=== PATIENT | female | born 1990 | race Asian ===

== ENCOUNTER 2016-09-30 05:32 | Emergency (ER) | payer OTHER ==
[~2016-09-30] VITALS: Ht 157.5 cm; Wt 106.6 kg
[2016-09-30 06:11] VITALS: BP 153/103; TEMP 97.9
== END 2016-09-30 06:11 | disposition home or self-care (01) ==
LOC: ED 05:32
DX: K02.9 Dental caries, unspecified (principal); K04.7 Periapical abscess without sinus; K08.89 Other specified disorders of teeth and supporting structures
CPT/HCPCS: 99281

== ENCOUNTER 2017-08-13 09:33 | Emergency (ER) | payer OTHER ==
[~2017-08-13] VITALS: Ht 162.6 cm; Wt 108.4 kg
[2017-08-13 11:27] VITALS: BP 125/78; TEMP 97.2
== END 2017-08-13 11:30 | disposition home or self-care (01) ==
LOC: ED 09:33
DX: S43.401A Unspecified sprain of right shoulder joint, initial encounter (principal); X50.9XXA Other and unspecified overexertion or strenuous movements or postures, initial encounter; Y92.512 Supermarket, store or market as the place of occurrence of the external cause
CPT/HCPCS: 96372; 99282; J1885

== ENCOUNTER 2017-08-28 08:22 | Observation (INO) | payer OTHER ==
[2017-08-28] VITALS (8 sets, daily range): BP systolic 108–146; BP diastolic 71–91; TEMP 97.7–98.9; Ht 162.6 cm; Wt 109.1 kg
[~2017-08-28] VITALS: Ht 162.6 cm; Wt 109.1 kg
[2017-08-28 09:43] LABS: PLATELET COUNT 436 K/uL (152-353)
[2017-08-28 09:56] LABS: POTASSIUM 4.1 mmol/L (3.6-5.2)
[2017-08-29] VITALS: BP 102/62; TEMP 98.2
[2017-08-29 04:00] VITALS: BP 105/59; TEMP 98.6
[2017-08-29 05:39] LABS: PLATELET COUNT 382 K/uL (152-353)
[2017-08-29 05:50] LABS: POTASSIUM 3.8 mmol/L (3.6-5.2)
[2017-08-29 08:00] VITALS: BP 109/57; TEMP 98.8
[2017-08-29 12:00] VITALS: BP 112/58; TEMP 98.6
== END 2017-08-29 17:30 | disposition home or self-care (01) ==
LOC: ED 08:22 → MED/SURG 12:24
PROVIDERS: ADMIT Family Medicine
DX: N76.4 Abscess of vulva (principal); E66.01 Morbid (severe) obesity due to excess calories
CPT/HCPCS: 36415; 80048; 80053; 80202; 81025; 85027; 87070; 87205; 93005; 96367; 96374; 96375; 99220; 99284; G0378; J1885; J2543; J3370; J3490

== ENCOUNTER 2017-12-13 11:54 | Emergency (ER) | payer OTHER ==
[~2017-12-13] VITALS: Ht 162.6 cm; Wt 108.9 kg
[2017-12-13 12:00] VITALS: TEMP 97.9
[2017-12-13 12:51] VITALS: BP 140/96
== END 2017-12-13 12:51 | disposition home or self-care (01) ==
LOC: ED 11:54
DX: K08.89 Other specified disorders of teeth and supporting structures (principal); S02.5XXA Fracture of tooth (traumatic), initial encounter for closed fracture
CPT/HCPCS: 99281

== ENCOUNTER 2018-01-15 08:43 | Emergency (ER) | payer OTHER ==
[~2018-01-15] VITALS: Ht 162.6 cm; Wt 108.9 kg
[2018-01-15 08:50] VITALS: TEMP 98.4
[2018-01-15 09:20] VITALS: BP 144/68
== END 2018-01-15 09:20 | disposition home or self-care (01) ==
LOC: ED 08:43
DX: H10.9 Unspecified conjunctivitis (principal)
CPT/HCPCS: 99281

== ENCOUNTER 2018-05-01 08:46 | Emergency (ER) | payer OTHER ==
[~2018-05-01] VITALS: Ht 162.6 cm; Wt 108.9 kg
[2018-05-01 08:55] VITALS: TEMP 98.1
[2018-05-01] MEDS ORDERED: METF500T PO (08:58)
[2018-05-01 10:17] VITALS: BP 133/89
== END 2018-05-01 10:17 | disposition home or self-care (01) ==
LOC: ED 08:46
DX: J06.9 Acute upper respiratory infection, unspecified (principal); R09.81 Nasal congestion; J02.9 Acute pharyngitis, unspecified
CPT/HCPCS: 87651; 99283

== ENCOUNTER 2018-07-03 08:21 | Emergency (ER) | payer OTHER ==
[~2018-07-03] VITALS: Ht 162.6 cm; Wt 108.9 kg
[~2018-07-03 08:21] MED LIST: METF500T PO
[2018-07-03 08:23] VITALS: TEMP 98.8
[2018-07-03 09:00] VITALS: BP 150/94
[2018-07-03] MEDS ORDERED: FERROUS SULF325 M1 PO (09:48)
[2018-07-03] MEDS ORDERED: SPIRONOLACT50 MG PO (09:49)
== END 2018-07-03 09:00 | disposition home or self-care (01) ==
LOC: ED 08:21
DX: S05.01XA Injury of conjunctiva and corneal abrasion without foreign body, right eye, initial encounter (principal)
CPT/HCPCS: 99283

== ENCOUNTER 2018-09-18 05:01 | Emergency (ER) | payer OTHER ==
[~2018-09-18] VITALS: Ht 162.6 cm; Wt 111.1 kg
[~2018-09-18 05:01] MED LIST changes: +FERROUS SULF325 M1 PO; +SPIRONOLACT50 MG PO
[2018-09-18 06:05] VITALS: BP 142/88; TEMP 98.5
== END 2018-09-18 06:05 | disposition home or self-care (01) ==
LOC: ED 05:01
DX: K04.7 Periapical abscess without sinus (principal)
CPT/HCPCS: 99282

== ENCOUNTER 2019-09-30 15:47 | Emergency (ER) | payer OTHER ==
[~2019-09-30] VITALS: Ht 162.6 cm; Wt 111.1 kg
[2019-09-30 16:14] VITALS: BP 143/86; TEMP 99.6
[2019-09-30 16:56] LABS: PLATELET COUNT 386 K/uL (152-353)
[2019-09-30 17:08] LABS: POTASSIUM 3.6 mmol/L (3.6-5.2)
== END 2019-09-30 18:01 | disposition home or self-care (01) ==
LOC: ED 15:47
PROVIDERS: Family Medicine
DX: K29.70 Gastritis, unspecified, without bleeding (principal); R11.2 Nausea with vomiting, unspecified
CPT/HCPCS: 80053; 81000; 81025; 85027; 99283

== ENCOUNTER 2020-02-17 15:16 | Emergency (ER) | payer OTHER ==
[~2020-02-17] VITALS: Ht 162.6 cm; Wt 111.1 kg
[2020-02-17 15:29] VITALS: BP 136/81; TEMP 100
== END 2020-02-17 16:20 | disposition home or self-care (01) ==
LOC: ED 15:16
DX: A08.39 Other viral enteritis (principal)
CPT/HCPCS: 99283

== ENCOUNTER 2020-04-07 00:11 | Emergency (ER) | payer OTHER ==
[~2020-04-07] VITALS: Ht 162.6 cm; Wt 104.3 kg
[2020-04-07 01:23] VITALS: BP 158/99; TEMP 98
== END 2020-04-07 01:23 | disposition home or self-care (01) ==
LOC: ED 00:11
DX: K02.9 Dental caries, unspecified (principal)
CPT/HCPCS: 99282

== ENCOUNTER 2021-02-28 12:37 | Emergency (ER) | payer OTHER ==
[~2021-02-28] VITALS: Ht 162.6 cm; Wt 104.3 kg
[2021-02-28 12:45] VITALS: BP 136/88; TEMP 98.9
== END 2021-02-28 13:28 | disposition home or self-care (01) ==
LOC: ED 12:37
DX: K04.7 Periapical abscess without sinus (principal)
CPT/HCPCS: 99282

== ENCOUNTER 2021-06-29 10:42 | Emergency (ER) | payer OTHER ==
[~2021-06-29] VITALS: Ht 162.6 cm; Wt 104.3 kg
[2021-06-29 10:49] VITALS: BP 116/71; TEMP 98.4
[2021-06-29 12:25] LABS: PLATELET COUNT 423 K/uL (152-353)
== END 2021-06-29 13:06 | disposition home or self-care (01) ==
LOC: ED 10:42
PROVIDERS: Hospitalist
DX: J06.9 Acute upper respiratory infection, unspecified (principal); Z20.822 Contact with and (suspected) exposure to COVID-19
CPT/HCPCS: 80048; 81025; 85027; 87502; 87635; 87651; 99283; U0003

== ENCOUNTER 2021-11-16 19:32 | Emergency (ER) | payer OTHER ==
[~2021-11-16] VITALS: Ht 157.5 cm; Wt 104.3 kg
[2021-11-16 21:14] LABS: PLATELET COUNT 393 K/uL (152-353)
[2021-11-16 22:27] VITALS: BP 134/77; TEMP 99.5
== END 2021-11-16 22:28 | disposition home or self-care (01) ==
LOC: ED 19:32
PROVIDERS: Emergency Medicine Emergency Medical Services
DX: J20.9 Acute bronchitis, unspecified (principal); Z20.822 Contact with and (suspected) exposure to COVID-19
CPT/HCPCS: 36415; 81002; 81025; 83605; 84484; 85027; 85379; 87040; 87502; 87635; 87651; 93005; 96360; 99284; J0696; U0003

== ENCOUNTER 2022-02-05 10:03 | Emergency (ER) | payer OTHER ==
[~2022-02-05] VITALS: Ht 157.5 cm; Wt 108.9 kg
[2022-02-05 10:45] LABS: PLATELET COUNT 405 K/uL (152-353)
[2022-02-05 11:53] VITALS: BP 131/67; TEMP 98.6
== END 2022-02-05 11:53 | disposition home or self-care (01) ==
LOC: ED 10:03
PROVIDERS: Family Medicine
DX: R51.9 Headache, unspecified (principal); J02.9 Acute pharyngitis, unspecified; J32.8 Other chronic sinusitis; I10 Essential (primary) hypertension
CPT/HCPCS: 85027; 87502; 87651; 99282

== ENCOUNTER 2022-03-22 04:35 | Emergency (ER) | payer OTHER ==
[~2022-03-22] VITALS: Ht 157.5 cm; Wt 108.9 kg
[2022-03-22] MEDS ORDERED: MOBIC15 MG PO (05:21)
[2022-03-22 05:25] VITALS: BP 138/84; TEMP 99.2
== END 2022-03-22 05:48 | disposition home or self-care (01) ==
LOC: ED 04:35
DX: R07.89 Other chest pain (principal); R20.0 Anesthesia of skin; F41.9 Anxiety disorder, unspecified
CPT/HCPCS: 93005; 96372; 99283; J1885

== ENCOUNTER 2022-07-01 12:16 | Emergency (ER) | payer OTHER ==
[~2022-07-01] VITALS: Ht 157.5 cm; Wt 108.9 kg
[~2022-07-01 12:16] MED LIST changes: +MOBIC15 MG PO
[2022-07-01 12:21] VITALS: TEMP 98.5
[2022-07-01 13:10] LABS: PLATELET COUNT 407 K/uL (152-353)
[2022-07-01 13:11] LABS: POTASSIUM 4.2 mmol/L (3.6-5.2)
[2022-07-01 14:44] VITALS: BP 128/84
== END 2022-07-01 14:44 | disposition home or self-care (01) ==
LOC: ED 12:16
PROVIDERS: Emergency Medicine
DX: R06.02 Shortness of breath (principal); Z20.822 Contact with and (suspected) exposure to COVID-19
CPT/HCPCS: 80048; 81025; 85027; 87502; 87635; 87651; 99283; J1100; U0001

== ENCOUNTER 2022-11-13 05:52 | Emergency (ER) | payer OTHER ==
[~2022-11-13] VITALS: Ht 157.5 cm; Wt 108.9 kg
[2022-11-13 05:57] VITALS: TEMP 98.1
[2022-11-13 07:30] VITALS: BP 139/96
== END 2022-11-13 07:50 | disposition home or self-care (01) ==
LOC: ED 05:52
DX: M46.1 Sacroiliitis, not elsewhere classified (principal); E66.9 Obesity, unspecified; I10 Essential (primary) hypertension
CPT/HCPCS: 80307; 81002; 99283

== ENCOUNTER 2022-11-16 00:09 | Emergency (ER) | payer OTHER ==
[~2022-11-16] VITALS: Ht 157.5 cm; Wt 108.9 kg
[2022-11-16 00:55] VITALS: BP 164/100; TEMP 97.8
== END 2022-11-16 04:45 | disposition home or self-care (01) ==
LOC: ED 00:09
DX: G50.0 Trigeminal neuralgia (principal); R68.84 Jaw pain
CPT/HCPCS: 96372; 99282; J1100; J1885; J2405

== ENCOUNTER 2022-12-09 13:23 | Emergency (ER) | payer OTHER ==
[~2022-12-09] VITALS: Ht 157.5 cm; Wt 108.9 kg
[2022-12-09 14:02] VITALS: BP 144/89; TEMP 98.8
== END 2022-12-09 14:02 | disposition home or self-care (01) ==
LOC: ED 13:23
DX: J01.90 Acute sinusitis, unspecified (principal); I10 Essential (primary) hypertension; Z20.822 Contact with and (suspected) exposure to COVID-19
CPT/HCPCS: 87502; 87635; 99282; U0003

== ENCOUNTER 2023-05-17 06:41 | Emergency (ER) | payer OTHER ==
[~2023-05-17] VITALS: Ht 157.5 cm; Wt 108.9 kg
[~2023-05-17 06:41] MED LIST changes: +PROMETHAZINE DM1 SOL PO; +PROVENTIL108 MCG/AC INH; +Z-PAK PO
[2023-05-17 06:50] VITALS: TEMP 97.9
[2023-05-17] MEDS ORDERED: TORADOL 60MG/2ML INJ IM ONE ×2 (08:12→08:15)
[2023-05-17 08:40] VITALS: BP 130/82
== END 2023-05-17 08:40 | disposition home or self-care (01) ==
LOC: ED 06:41
DX: S86.012A Strain of left Achilles tendon, initial encounter (principal); W17.89XA Other fall from one level to another, initial encounter
CPT/HCPCS: 81025; 96372; 99283; J1885